=== PATIENT | male | born 1960 | race Caucasian/White ===

== ENCOUNTER 2020-02-12 22:12 | Emergency (ER) | payer OTHER, MEDICARE ==
[~2020-02-12] VITALS: Ht 185.5 cm; Wt 112.7 kg
[2020-02-12 22:37] LABS: HEMATOCRIT 47 % (40-54); HEMOGLOBIN 15.2 G/DL (13.3-17.7); MEAN CORPUSCULAR HEMOGLOBIN 31 PG (25-34); MEAN CORPUSCULAR HGB CONC 32 G/DL (32-36); MEAN CORPUSCULAR VOLUME 95 FL (80-99); WHITE BLOOD COUNT 12.7 10^3/uL (4.3-11.0)
[2020-02-12 22:38] LABS: BASOPHILS % (AUTO) 0 % (0-10); EOSINOPHILS # (AUTO) 0.1 10^3/uL (0.0-0.3); EOSINOPHILS % (AUTO) 1 % (0-10); LYMPHOCYTES # (AUTO) 1.5 X 10^3 (1.0-4.0); LYMPHOCYTES % (AUTO) 12 % (12-44); MEAN PLATELET VOLUME 9.6 FL (7.4-10.4); MONOCYTES % (AUTO) 8 % (0-12); NEUTROPHILS # (AUTO) 9.9 X 10^3 (1.8-7.8); NEUTROPHILS % (AUTO) 78 % (42-75); PLATELET COUNT 230 10^3/uL (130-400)
--- NOTE | 2020-02-12 22:40 | ED Chest Pain ---
General Chief Complaint: Chest Pain Stated Complaint: CHEST PAIN/WEAKNESS Source: patient Exam Limitations: no limitations History of Present Illness Date Seen by Provider: Feb 12, 2020 Time Seen by Provider: 22:30 Initial Comments Patient is a 60-year-old male who presents to the emergency room today with a chief complaint of chest discomfort and acid reflux type symptoms. Patient states onset of symptoms were about 930 this morning. He woke up dizzy and st ates after he got out of bed he noted the pain. He states the symptoms have been constant and unremitting all day long. Patient also admits to "respiratory distress" and states that he has had a little shortness of breath. He endorses mild nausea. He states he felt like he had chills earlier today and felt generally weak. Patient is status post liver transplant almost 6 years ago. He is chronically immunosuppressed secondary to his liver transplant. He has been under increased stress the last 2 weeks with the of his sister and issues with his . Patient is recently local from [place], staying with his brother. He denies any recent sick contacts but has had some recent travel. He denies fevers. But again endorses chills. Denies any other GI or symptoms. All other review of systems reviewed and negative except as stated. Timing/Duration: constant Severity/Quality: moderate Location: central, shoulder (Left shoulder) Activities at Onset: none Prior CP/Workup: no prior chest pain, no prior cardiac workup Modifying Factors: improves with antacids Allergies and Home Medications Allergies Coded Allergies: latex (Verified Allergy, Severe, 02/12/20) moxifloxacin (Verified Allergy, Severe, 02/12/20) Patient Home Medication List Home Medication List Reviewed: Yes Review of Systems Review of Systems Constitutional: chills, dizziness, malaise, weakness EENTM: Nose Congestion Respiratory: Shortness of Air Cardiovascular: Chest Pain Gastrointestinal: No Symptoms Reported; Denies Diarrhea, Denies Nausea, Denies Vomiting Genitourinary: No Symptoms Reported Musculoskeletal: no symptoms reported Skin: no symptoms reported All Other Systems Reviewed Negative Unless Noted: Yes Past Wncwfas-Ygdodt-Fkvbee Hx Patient Social History Recent Foreign Travel: No Contact w/Someone Who Travel: No Physical Exam Vital Signs Vital Signs - First Documented Capillary Refill : Height, Weight, BMI Height: '" Weight: lbs. oz. kg; BMI Method: General Appearance: No Apparent Distress, WD/WN HEENT: PERRL/EOMI Neck: Full Range of Motion Respiratory: Lungs Clear, Normal Breath Sounds, No Accessory Muscle Use, No Respiratory Distress Cardiovascular: Regular Rate, Rhythm, No Edema, No Murmur Gastrointestinal: Normal Bowel Sounds, Non Tender, Soft Extremity: Normal Capillary Refill, Normal Inspection, Normal Range of Motion, Non Tender, No Calf Tenderness Neurologic/Psychiatric: Alert, Oriented x3, No Motor/Sensory Deficits, Normal Mood/Affect Skin: Normal Color, Warm/Dry Progress/Results/Core Measures Results/Orders Lab Results Laboratory Tests Test 02/12/20 00:13 02/12/20 20:54 02/12/20 22:14 Range/Units Urine Color YELLOW Urine Clarity CLEAR Urine pH 6.5 5-9 Urine Specific Lenore 1.025 H 1.016-1.022 Urine Protein NEGATIVE NEGATIVE Urine Glucose (UA) NEGATIVE NEGATIVE Urine Ketones NEGATIVE NEGATIVE Urine Nitrite NEGATIVE NEGATIVE Urine Bilirubin NEGATIVE NEGATIVE Urine Urobilinogen 0.2 < = 1.0 MG/DL Urine Leukocyte Esterase NEGATIVE NEGATIVE Urine RBC (Auto) NEGATIVE NEGATIVE Urine RBC 2-5 H /HPF Urine WBC RARE /HPF Urine Crystals NONE /LPF Urine Bacteria NEGATIVE /HPF Urine Casts NONE /LPF Urine Mucus NEGATIVE /LPF Urine Culture Indicated NO Coronavirus (COVID-19)(PCR) Negative Negative White Blood Count 12.7 H 4.3-11.0 10^3/uL Red Blood Count 4.96 4.35-5.85 10^6/uL Hemoglobin 15.2 13.3-17.7 G/DL Hematocrit 47 40-54 % Mean Corpuscular Volume 95 80-99 FL Mean Corpuscular Hemoglobin 31 25-34 PG Mean Corpuscular Hemoglobin Concent 32 32-36 G/DL Red Cell Distribution Width 13.8 10.0-14.5 % Platelet Count 230 130-400 10^3/uL Mean Platelet Volume 9.6 7.4-10.4 FL Immature Granulocyte % (Auto) 1 % Neutrophils (%) (Auto) 78 H 42-75 % Lymphocytes (%) (Auto) 12 12-44 % Monocytes (%) (Auto) 8 0-12 % Eosinophils (%) (Auto) 1 0-10 % Basophils (%) (Auto) 0 0-10 % Neutrophils # (Auto) 9.9 H 1.8-7.8 X 10^3 Lymphocytes # (Auto) 1.5 1.0-4.0 X 10^3 Monocytes # (Auto) 1.0 0.0-1.0 X 10^3 Eosinophils # (Auto) 0.1 0.0-0.3 10^3/uL Basophils # (Auto) 0.0 0.0-0.1 10^3/uL Immature Granulocyte # (Auto) 0.1 0.0-0.1 10^3/uL Prothrombin Time 12.9 12.2-14.7 SEC INR Comment 0.9 0.8-1.4 Activated Partial Thromboplast Time 27 24-35 SEC Sodium Level 140 135-145 MMOL/L Potassium Level 4.7 3.6-5.0 MMOL/L Chloride Level 104 98-107 MMOL/L Carbon Dioxide Level 27 21-32 MMOL/L Anion Gap 9 5-14 MMOL/L Blood Urea Nitrogen 24 H 7-18 MG/DL Creatinine 1.66 H 0.60-1.30 MG/DL Estimat Glomerular Filtration Rate 43 BUN/Creatinine Ratio 14 Glucose Level 99 70-105 MG/DL Calcium Level 9.2 8.5-10.1 MG/DL Corrected Calcium 8.5-10.1 MG/DL Total Bilirubin 0.5 0.1-1.0 MG/DL Aspartate Amino Transf (AST/SGOT) 19 5-34 U/L Alanine Aminotransferase (ALT/SGPT) 28 0-55 U/L Alkaline Phosphatase 90 40-136 U/L Troponin I < 0.30 <0.30 NG/ML Total Protein 6.9 6.4-8.2 GM/DL Albumin 4.7 H 3.2-4.5 GM/DL My Orders Orders - ELI DOUGHERTY MD Cbc With Automated Diff (02/12/20 22:32) Comprehensive Metabolic Panel (02/12/20 22:32) Ua Culture If Indicated (02/12/20 22:32) Chest 1 View Ap/Pa Only (02/12/20 22:32) Ekg Tracing (02/12/20 22:32) Ed Iv/Invasive Line Start (02/12/20 22:32) Protime With Inr (02/12/20 22:32) Partial Thromboplastin Time (11/15/20 22:32) Troponin I Fs (02/12/20 22:32) Lidocaine 2% Viscous 15 Ml (Xylocaine Vi (02/12/20 23:15) Antacid Suspension (Mylanta Suspension (02/12/20 23:15) Coronavirus Sars-Cov-2 So 2019 (02/12/20 20:54) Medications Given in ED Vital Signs/I&O 02/12/20 02/12/20 02/13/20 22:12 22:12 00:50 Temp 36.1 36.3 Pulse 74 73 Resp 16 18 B/P (MAP) 117/66 (83) 122/103 Pulse Ox 99 97 O2 Delivery Room Air Room Air Room Air Progress Progress Note : Time: 22:39 Progress Note 60-year-old male presents to the emergency room today with a chief complaint of chest discomfort abdominal discomfort related to heartburn "the worst I have ever had", dizziness, weakness and chills. Status post liver transplant. Recent travel. Evaluation today includes a physical exam, EKG, chest x-ray, CBC, comprehensive metabolic panel, coagulation profile, urinalysis, in-house Covid test. Patient's vital signs are stable. Overall the patient appears nontoxic. Pain has been constant throughout the day unremitting. We will await laboratory studies. 2304 Labs reviewed and the only thing really elevated is his WBC at 12.7. CXR looks good without effusion or infiltrate. Urine and Covid are still pending. 0037 Urinalysis reveals trace blood, no evidence of infection. Covid test is a send out and will be back in 24 hours or so. Patient looks well remains afebrile, nontachycardic, normal blood pressures; nontoxic appearing. I have instructed the patient to follow-up with his transplant center tomorrow. He is to return to the emergency room if he has any further symptoms. He still has a little chest discomfort, this has been ongoing for greater than 6 hours and in light of negative cardiac enzymes I have no clinical suspicion for an acute coronary syndrome. Presentation would be very atypical in light of the negative cardiac enzymes and a normal EKG. Patient is advised to take [id number] Tylenol and ibuprofen for his symptoms. Since he has been in the emergency department he has developed some joint achiness. Suspect that he has a viral syndrome whether or not this is COVID-19 remains to be seen. Departure Impression Primary Impression: Atypical chest pain Additional Impression: Viral syndrome Disposition: 01 HOME, SELF-CARE Condition: Stable Departure-Patient Inst. Decision time for Depature: 00:43 Referrals: NO,LOCAL PHYSICIAN (PCP/Family) Primary Care Physician Patient Instructions: Chest Pain That Is Not Caused by the Heart (DC), Viral Syndrome (DC) Add. Discharge Instructions: Contact your sales operations coordinator tomorrow. Drink plenty of fluids to stay well hydrated. Take tyelnol as needed sparingly for joint aches and pains. If you have any new or concerning symptoms, or fever, please come back to the ER for re-evaluation. All discharge instructions reviewed with patient and/or family. Voiced understanding. ELI DOUGHERTY MD Feb 12, 2020 22:40
[2020-02-12 22:48] LABS: INR 0.9 (0.8-1.4); PROTHROMBIN TIME PATIENT 12.9 SEC (12.2-14.7)
[2020-02-12 22:49] LABS: BUN/CREATININE RATIO 14; CALCIUM 9.2 MG/DL (8.5-10.1); CARBON DIOXIDE 27 MMOL/L (21-32); CHLORIDE 104 MMOL/L (98-107); CREATININE SERUM 1.66 MG/DL (0.60-1.30); GFR ESTIMATED 43; GLUCOSE 99 MG/DL (70-105); POTASSIUM 4.7 MMOL/L (3.6-5.0); SODIUM 140 MMOL/L (135-145)
[2020-02-12 22:50] LABS: ALANINE AMINOTRANSFERASE 28 U/L (0-55); ALBUMIN 4.7 GM/DL (3.2-4.5); ALKALINE PHOSPHATASE 90 U/L (40-136); BILIRUBIN,TOTAL 0.5 MG/DL (0.1-1.0); TOTAL PROTEIN 6.9 GM/DL (6.4-8.2)
[2020-02-12] MEDS ORDERED: LIDOCAINE 2% VISCOUS 15 ML UDC PO ONE (23:15)
[2020-02-12] MEDS ORDERED: ANTACID SUSP 30 ML UDC (MYLANTA) PO ONE (23:15)
[2020-02-13 00:25] LABS: BACTERIA,URINE NEGATIVE /HPF; BILIRUBIN,URINE NEGATIVE (NEGATIVE); CLARITY,URINE CLEAR; COLOR,URINE YELLOW; GLUCOSE, URINE (UA) NEGATIVE (NEGATIVE); KETONES,URINE NEGATIVE (NEGATIVE); LEUKOCYTE ESTERASE ,URINE NEGATIVE (NEGATIVE); NITRITE,URINE NEGATIVE (NEGATIVE); PH,URINE 6.5 (5-9); PROTEIN,URINE NEGATIVE (NEGATIVE); WBC,URINE RARE /HPF
[2020-02-13 00:50] VITALS: BP 122/103
--- NOTE | 2020-02-13 07:08 | Diagnostic Imaging Report ---
INDICATION: Chest pain Portable AP upright view of the chest is obtained. Overall heart size and pulmonary vascularity are within normal limits. There is air trapping, bilaterally. There may be mild left basilar atelectasis and/or scarring. IMPRESSION: Probable background emphysema with mild left basilar atelectasis and/or scarring. Follow-up PA and lateral views of the chest would be useful to document resolution. Dictated by: Dictated on workstation # [id number]
== END 2020-02-13 00:50 | disposition home or self-care (01) ==
LOC: ER FS 22:16
DX: R07.89 Other chest pain (principal); B34.9 Viral infection, unspecified; Z20.828 Contact with and (suspected) exposure to other viral communicable diseases; Z91.040 Latex allergy status; Z88.1 Allergy status to other antibiotic agents
CPT/HCPCS: 36415; 71045; 80053; 81000; 84484; 85025; 85610; 85730; 87635; 93041